=== PATIENT | male | born 1965 | race American Indian/Alaskan Native ===

== ENCOUNTER 2016-10-17 07:24 | Day surgery (SDC) | payer OTHER ==
[2016-10-08 10:55] VITALS: BMI 26.0
[2016-10-17] MEDS ORDERED: Propofol 10 mg/ml Inj (20 ML) ONE ×2 (08:02)
[2016-10-17] MEDS ORDERED: Midazolam 2 MG/2 ML VIAL ONE (08:02)
[2016-10-17] MEDS ORDERED: ceFAZolin IV 2 gm in Dextrose 50 ML IVPB ONE (08:20)
[2016-10-17] MEDS ORDERED: Lidocaine 1% w Epi 1:100,000 Inj ONE (08:21)
[2016-10-17] MEDS ORDERED: Bupivacaine HCl 0.25% PF (10 ml) Inj ONE ×2 (08:21)
[2016-10-17] MEDS ORDERED: Lactated Ringer's 1,000 ML IV ONE (10:45)
[2016-10-17] MEDS ORDERED: Morphine 4 MG/ML VIAL ONE (12:36)
--- NOTE | 2016-10-17 13:05 | PCM.SURG1 ---
Surgeon's Initial Post Op Note - Surgeon's Notes Surgeon: Jerson Barrel Roller Operator: PGY3, Alexus CERRATONAYousif MS3 Type of Anesthesia: General Endo Pre-Operative Diagnosis: Ventral hernia Operative Findings: Ventral hernia x 2, diastasis recti Post-Operative Diagnosis: Ventral hernia x 2, diastasis recti Operation Performed: Robotic assisted Ventral Hernia Repair with mesh Specimen/Specimens Removed: hernia contents Estimated Blood Loss: EBL {In ML}: 10 Blood Products Given: N/A Drains Used: No Drains Post-Op Condition: Good Date of Surgery/Procedure: 10/17/16 Time of Surgery/Procedure: 10:20
[2016-10-17] MEDS: HYDROmorphone 0.5 mg/0.5 ml ISec IVP PRN ×3 (13:34→14:17)
[2016-10-17] MEDS ORDERED: Oxycodone/Acetaminophen 5/325 mg Tab PO ONE (13:35)
[2016-10-17] MEDS ORDERED: Lactated Ringer's 500 ML IV ONE (14:55)
[2016-10-17 15:14] VITALS: O2SAT 99
--- NOTE | 2016-10-17 15:40 | OP ---
PROCEDURE DATE: 10/17/2016 PREOPERATIVE DIAGNOSIS: Ventral hernia. POSTOPERATIVE DIAGNOSES: Ventral hernia with multiple defects. PROCEDURES DONE: 1. Robotic extensive lysis of adhesions. 2. Robotic ventral hernia repair with mesh. SURGEON: Cristobal Arthur M.D. REPORTER: Nicole Senior. Nicole was present from the beginning up to the end of the procedure, helped in prepping and draping, placement of the port, docking and undocking of the robot. SECOND MANAGER STATE: [place], PGY-3 resident. ANESTHESIA: General endotracheal tube anesthesia. ESTIMATED BLOOD LOSS: Around 10 mL. DRAINS: None. PATHOLOGY: The hernial content and sac was sent for pathology. COMPLICATIONS: None. INTRAOPERATIVE FINDINGS: The patient had approximately 2 cm x 3 cm ventral hernia defect in the supr aumbilical region as well as multiple periumbilical defects. INTRAOPERATIVE STEPS: This is a 51-year-old male who was diagnosed with a ventral hernia and patient was consented for the robotic ventral hernia repair with the mesh, brought to the OR, placed supine on the operating table. After induction of the anesthesia, abdomen was prepped and draped in a usual sterile fashion. The left upper quadrant incision was made. After incising skin and subcutaneous t issue, the peritoneal cavity was entered using Visiport technique and pneumo was created. Another tw o 8 mm ports were placed in left upper quadrant and the left flank and the 5 mm port was changed to 8 mm port. Robot was brought in. Camera arm, and arm 1 and arm 2 was docked and through the console, the dissection of the hernial sac and content was done. The patient found to have extensive attachm ent of the falciform ligament to the anterior abdominal wall and there were peritoneal adhesions and extensive adhesional lysis was done and extra fat as well as the hernial sac content was dissected of f and it was sent off the table for the pathology. The defect was closed with #1 Prolene V-Loc mode nuous sutures in 2 layers and the 9 cm mesh was implanted. After proper implantation of the mesh, al l the ports were taken out under vision. The 12 mm port site was closed in 2 layers, the fascia with 0 Vicryl and the skin with a 4-0 Monocryl. Dry sterile dressing was applied. The patient tolerated the procedure well. Count of instruments and gauze was correct. There was no apparent complication . Cristobal Arthur MD cc: [id number] TT: 10/17/2016 15:39:59 [email or web address]
[2016-10-17 15:44] VITALS: BP 131/88; PULSE 72; RESP 15; TEMP 97.6
== END 2016-10-17 15:45 | disposition home or self-care (01) ==
LOC: C.SDS 07:24
PROVIDERS: ATTEND Surgery Surgical Critical Care
DX: K43.9 Ventral hernia without obstruction or gangrene (principal); K66.0 Peritoneal adhesions (postprocedural) (postinfection)
CPT/HCPCS: 49652; 88302; C1781; J0690; J1170; J2250; J2270; J2704; J3010; J7120 ×2